=== PATIENT | male | born 1995 | race Two or more races ===

== ENCOUNTER 2017-05-15 20:41 | Emergency (ER) | payer SELFPAY ==
--- NOTE | 2017-05-15 20:57 | ER Document Report ---
ED Animal Bite - General Chief Complaint: Dog Bite Stated Complaint: DOG BITE Time Seen by Provider: 05/15/17 20:57 Mode of Arrival: Ambulatory Information source: Patient, Parent Notes: 22 yo male whose tetanus is not current was trying to kiss neighbors dog and it bit his upper lip. Dogs imm. current and he knows this dog and family. NKDA. TRAVEL OUTSIDE OF THE [place] IN LAST 30 DAYS: No - Related Data Allergies/Adverse Reactions: iodine Allergy (Verified 10/24/15 13:53) Past Medical History - General Information source: Patient - Social History Smoking Status: Unknown if Ever Smoked Family History: CAD, DM, Hyperlipidemia, Hypertension, Malignancy Pulmonary Medical History: Reports: Hx Bronchitis Surgical Hx: Negative Past Surgical History: Reports: Hx Tonsillectomy - Immunizations Immunizations up to date: Yes Hx Diphtheria, Pertussis, Tetanus Vaccination: Yes Review of Systems - Review of Systems Constitutional: No symptoms reported EENT: No symptoms reported Cardiovascular: No symptoms reported Respiratory: No symptoms reported Gastrointestinal: No symptoms reported Genitourinary: No symptoms reported Male Genitourinary: No symptoms reported Musculoskeletal: No symptoms reported Skin: See HPI Hematologic/Lymphatic: No symptoms reported Neurological/Psychological: No symptoms reported Physical Exam - Vital signs Vitals: Temp Pulse Resp BP Pulse Ox 98.9 F 94 20 138/79 H 100 05/15/17 20:43 05/15/17 20:43 05/15/17 20:43 05/15/17 20:43 05/15/17 20:43 Interpretation: Normal - General General appearance: Appears well, Alert In distress: None - HEENT Head: Normocephalic, Atraumatic Eyes: Normal Pupils: PERRL Mouth/Lips: Laceration - 2 vertical lacerations through the tianna border ( see procedure for the length), 3rd laceration middle upper lip 6 mm flap. Muscle use of the upper lip is normal. Neck: Supple - Respiratory Respiratory status: No respiratory distress Chest status: Nontender Breath sounds: Normal Chest palpation: Normal - Cardiovascular Rhythm: Regular Heart sounds: Normal auscultation Murmur: No - Abdominal Inspection: Normal Distension: No distension Bowel sounds: Normal Tenderness: Nontender Organomegaly: No organomegaly - Back Back: Normal, Nontender - Extremities General upper extremity: Normal inspection, Nontender, Normal color, Normal ROM , Normal temperature General lower extremity: Normal inspection, Nontender, Normal color, Normal ROM , Normal temperature, Normal weight bearing. No: Kristian's sign - Neurological Neuro grossly intact: Yes Cognition: Normal Orientation: AAOx4 Alfred Coma Scale Eye Opening: Spontaneous [place] Coma Scale Verbal: Oriented Alfred Coma Scale Motor: Obeys Commands Alfred Coma Scale Total: 15 Speech: Normal Motor strength normal: LUE, RUE, LLE, RLE Sensory: Normal - Psychological Associated symptoms: Normal affect, Normal mood - Skin Skin Temperature: Warm Skin Moisture: Dry Skin Color: Normal Course - Re-evaluation Re-evalutation: 05/15/17 21:[address] Perrin to ensure that we can close it here in the emergency room and she agrees that that can be done we do not have ears nose and throat oral surgery on-call for the emergency department. Dr. Perrin will do a infrorbital socrates block to numb the whole lip which the patient appreciates. - Vital Signs Vital signs: Temp Pulse Resp BP Pulse Ox 98.9 F 66 16 104/62 97 05/15/17 20:43 05/16/17 00:08 05/16/17 00:08 05/16/17 00:08 05/16/17 00:08 Procedures - Laceration/Wound Repair Face Time completed: 23:15 Wound length (cm): 3 - total length of all edges Wound's Depth, Shape: Linear, Other - ful thickness, muscle movement of lip is normal Laceration pre-procedure: Other - surgiscrub Anesthetic type: 1% Lidocaine w/epi Volume Anesthetic (mLs): 2 - local, facial block done by dr. soler bilateral with 0.5% bupivicaine and 1% lidocaine to block upper lip Wound explored: Clean Irrigated w/ Saline (mLs): 120 - 60 each lac Wound Repaired With: Sutures Suture Size/Type: 5:0, Nylon Number of Sutures: 5 Layer Closure?: No Complications: No - tianna border sutured and 2 other each long lac, the central lac x 1 Adult Head Front/Back picture: 1 - 1.2 cm 2 sutures 2 - above tianna border x 1 suture 3 - 2nd long through tianna border 1.6 cm 2 sutures Discharge - Discharge Clinical Impression: Upper lip dog bite repair Condition: Good Disposition: HOME, SELF-CARE Instructions: Acetaminophen, Animal Bites ([facility]), Augmentin ([facility]), Facial Laceration ([facility]), Use of Buov-Hjz-Baszujb Ibuprofen ([facility]) Additional Instructions: bacitracin for 2 days, then vaseline to keep moist for healing sutures out in 7 days return to er sooner if any signs of infection finish the antibiotics Prescriptions: Amoxicillin/Potassium Clav [Augmentin 875-125 Tablet] 1 each PO BID #10 tablet
[2017-05-15] MEDS ORDERED: ACETAMINOPHEN 325 MG TABLET PO ONE (21:02)
[2017-05-15] MEDS ORDERED: DIPH/PERTUSS(ACELL)/TETANUS VAC/PF 0.5 ML SYR (>=10YO) IM ONE (21:02)
[2017-05-15] MEDS ORDERED: AMOXICILLIN TRIHYDRATE 500 MG CAPSULE PO ONE (21:02)
[2017-05-15] MEDS ORDERED: AMOXICILLIN TR/POT CLAVULANATE 500-125 MG TAB PO ONE (21:02)
[2017-05-15] MEDS ORDERED: ONDANSETRON 4 MG TAB.RAPDIS PO ONE (21:02)
--- NOTE | 2017-05-15 21:12 | ER Document Report ---
Doctor's Note Notes: 05/22/17 21:13 I did see him personally examined this patient in conjunction with Maite gamble nurse practitioner. Patient did have 2 large gaping lacerations to the upper lip that both cross the vermilion border as well as one more horizontal laceration between the 2 across the filtrum. I did discuss the risks and benefits of loosely approximating these lacerations as opposed to leaving them open. Patient is aware of the risk of infection from a dog bite, he is also aware of the high risk of significant scarring should we not close them. Patient is agreeable to 1 stitch being placed in each laceration at the vermilion border for best cosmetic outcome, additional sutures will be placed only if necessary to keep this from gaping widely. I did personally perform the infraorbital block bilaterally using a 50-50 mixture of bupivacaine and lidocaine infiltrated in a regional manner as per usual. Patient tolerated well. No complications.
[2017-05-15] MEDS ORDERED: BUPIVACAINE HCL 0.5 % INJ/PF 30 ML SDV INJ ONE (21:13)
[2017-05-15] MEDS ORDERED: LIDOCAINE 1% INJ-PF (10 MG/ML) 30 ML SDV INJ ONE (21:14)
[2017-05-15] MEDS ORDERED: LIDOCAINE 1.5%/EPINEPHRINE INJ-PF 30 ML SDV INJ ONE (21:15)
[2017-05-15] MEDS ORDERED: DIPH/PERTUSS(ACELL)/TETANUS VAC/PF 0.5 ML SYR (>=10YO) IM PRN (23:22)
[2017-05-16 00:09] VITALS: BP 104/62
== END 2017-05-16 00:08 | disposition home or self-care (01) ==
LOC: ER 20:41
PROC: 0HQ1XZZ Repair Face Skin, External Approach (ICD-10-PCS; principal; 2017-05-15)
DX: S01.551A Open bite of lip, initial encounter (principal); W54.0XXA Bitten by dog, initial encounter
CPT/HCPCS: 12013; 99283; 90471; 90715; S0119; J3490 ×2